=== PATIENT | female | born 1945 | race Native Hawaiian/Other Pacific Islander ===

== ENCOUNTER 2020-02-21 10:50 | Outpatient (CLI) | payer OTHER | END 2020-02-21 19:04 | disposition home or self-care (01) | LOC: RAD 10:50 | DX: M25.562 Pain in left knee (principal) ==

== ENCOUNTER 2020-03-20 09:48 | Outpatient (CLI) | payer OTHER | END 2020-03-20 21:27 | disposition home or self-care (01) | LOC: MRI 09:48 | DX: M17.12 Unilateral primary osteoarthritis, left knee (principal) ==

== ENCOUNTER 2022-10-22 09:33 | Outpatient (CLI) | payer OTHER | END 2022-10-22 20:54 | disposition home or self-care (01) | LOC: MAMMO 09:33 | PROVIDERS: ATTEND Nurse Practitioner Primary Care | DX: Z13.820 Encounter for screening for osteoporosis (principal); Z12.31 Encounter for screening mammogram for malignant neoplasm of breast; N95.8 Other specified menopausal and perimenopausal disorders ==

== ENCOUNTER 2023-04-09 10:48 | Emergency (ER) | payer OTHER ==
[~2023-04-09] VITALS: Ht 157.5 cm; Wt 57.2 kg
[2023-04-09 10:55] VITALS: BP 151/112; TEMP 97.2
== END 2023-04-09 12:05 | disposition home or self-care (01) ==
LOC: ED 10:48
DX: S52.502A Unspecified fracture of the lower end of left radius, initial encounter for closed fracture (principal); W10.9XXA Fall (on) (from) unspecified stairs and steps, initial encounter; Y93.9 Activity, unspecified; Y92.9 Unspecified place or not applicable; Y99.9 Unspecified external cause status; I10 Essential (primary) hypertension; J44.9 Chronic obstructive pulmonary disease, unspecified
CPT/HCPCS: 99283

== ENCOUNTER 2023-04-11 09:52 | Emergency (ER) | payer OTHER ==
[~2023-04-11] VITALS: Ht 157.5 cm; Wt 72.6 kg
[2023-04-11 09:55] VITALS: TEMP 98
[2023-04-11 10:23] VITALS: BP 148/90
== END 2023-04-11 10:36 | disposition home or self-care (01) ==
LOC: ED 09:52
PROC: 2W0DX1Z Change Splint on Left Lower Arm (ICD-10-PCS; principal; 2023-04-11)
DX: S50.812A Abrasion of left forearm, initial encounter (principal); X58.XXXA Exposure to other specified factors, initial encounter; Y93.89 Activity, other specified; Y92.009 Unspecified place in unspecified non-institutional (private) residence as the place of occurrence of the external cause; Y99.9 Unspecified external cause status; S52.502S Unspecified fracture of the lower end of left radius, sequela; W19.XXXS Unspecified fall, sequela; I10 Essential (primary) hypertension
CPT/HCPCS: 99282

== ENCOUNTER 2023-04-19 13:36 | Outpatient (CLI) | payer OTHER | END 2023-04-19 21:26 | disposition home or self-care (01) | LOC: RAD 13:36 | PROVIDERS: ATTEND Physician Assistant | DX: M25.532 Pain in left wrist (principal) ==